=== PATIENT | female | born 1965 | race Caucasian/White ===

== ENCOUNTER 2018-04-08 08:17 | Emergency (ER) | payer BC ==
[2018-04-08 08:28] VITALS: BMI 19.3
--- NOTE | 2018-04-08 08:58 | ED PDOC ---
HPI: Allergic Reaction Time Seen by Provider: 04/08/18 08:44 Chief Complaint (Nursing): Allergic Reaction Chief Complaint (Provider): Allergic Reaction History Per: Patient History/Exam Limitations: no limitations Onset/Duration Of Symptoms: Days (x5) Current Symptoms Are (Timing): Still Present Associated Symptoms: Skin Rash Additional Complaint(s): 52 year old female presents to the ED complaining of itchy skin rash on both legs, onset 5 days ago. Patient reports of going hiking with on Monday and developed a itchy rash on both legs on Monday. Patient states she saw her PMD on Monday and was prescribed prednisone, Atarax and calamine lotion but reports that rash is still present. PMD: Dr. Kael Chung Past Medical History Reviewed: Historical Data, Nursing Documentation, Vital Signs Vital Signs: Last Vital Signs Temp 97.8 F 04/08/18 08:37 Pulse 71 04/08/18 08:37 Resp 22 04/08/18 08:37 BP 142/93 H 04/08/18 08:37 Pulse Ox 100 04/08/18 08:37 - Medical History PMH: Hypothyroidism - Surgical History Surgical History: No Surg Hx - Family History Family History: States: Unknown Family Hx - Immunization History Hx Tetanus Toxoid Vaccination: No Hx Influenza Vaccination: No Hx Pneumococcal Vaccination: No - Home Medications Home Medications: Ambulatory Orders Medication Instructions Recorded DiphenhydrAMINE [Benadryl] 50 mg PO Q6H PRN #20 cap 04/08/18 Prednisone 50 mg PO DAILY #4 tab 04/08/18 - Allergies Allergies/Adverse Reactions: Allergies Allergy/AdvReac Type Severity Reaction Status Date / Time No Known Allergies Allergy Verified 04/08/18 08:54 Review of Systems ROS Statement: Except As Marked, All Systems Reviewed And Found Negative Skin: Positive for: Rash (itchy rash to bilateral legs ) Physical Exam - Reviewed Nursing Documentation Reviewed: Yes Vital Signs Reviewed: Yes - Physical Exam Appears: Positive for: Non-toxic, No Acute Distress Head Exam: Positive for: ATRAUMATIC, NORMOCEPHALIC Skin: Positive for: Rash (pacular rash to the anterior thigh; no evidence of secondary bacterial infection, no drainage, no fluctuace, no tenderness) Eye Exam: Positive for: Normal appearance, EOMI, PERRL ENT: Positive for: Normal ENT Inspection Neck: Positive for: Normal Cardiovascular/Chest: Positive for: Regular Rate, Rhythm. Negative for: Murmur Respiratory: Positive for: Normal Breath Sounds. Negative for: Respiratory Distress Gastrointestinal/Abdominal: Positive for: Normal Exam, Soft. Negative for: Tenderness Back: Positive for: Normal Inspection Extremity: Positive for: Normal ROM. Negative for: Pedal Edema, Deformity - ECG O2 Sat by Pulse Oximetry: 100 (RA) Pulse Ox Interpretation: Normal - Progress ED Course And Treament: Time: 853 Plan: -- Prednisone 50 mg PO -- Benadryl 50 mg PO Scribe Attestation: Documented by Derek Berrios, acting as a scribe for Dr. Margaret Gomez MD. Provider Scribe Attestation: All medical record entries made by the Scribe were at my direction and personally dictated by me. I have reviewed the chart and agree that the record accurately reflects my personal performance of the history, physical exam, medical decision making, and the department course for this patient. I have also personally directed, reviewed, and agree with the discharge instructions and disposition. Disposition - Clinical Impression Clinical Impression: Poison yaneli dermatitis - Disposition Disposition: Routine/Home Disposition Time: 09:34 Condition: GOOD Additional Instructions: FOLLOW-UP WITH PMD WITHIN 2 DAYS FOR REEVALUATION. APPLY CALAMINE LOTION NEEDED. Prescriptions: DiphenhydrAMINE [Benadryl] 50 mg PO Q6H PRN #20 cap PRN Reason: Itching / Pruritus Prednisone 50 mg PO DAILY #4 tab Instructions: Poison Yaneli Forms: [employer] (Khmer)
[2018-04-08 09:14] VITALS: RESP 22
[2018-04-08 10:21] VITALS: BP 110/70; PULSE 72; TEMP 98
[2018-04-13 17:00] VITALS: O2SAT 100
== END 2018-04-08 10:20 | disposition home or self-care (01) ==
LOC: H.ER 08:17
DX: L23.7 Allergic contact dermatitis due to plants, except food (principal); E03.9 Hypothyroidism, unspecified